=== PATIENT | female | born 1955 | race Caucasian/White ===

== ENCOUNTER → 2020-11-28 | Day surgery (SDC) | payer MEDICARE, OTHER ==
[~2020-11-28] VITALS: Ht 165.1 cm; Wt 82.7 kg
[~2020-11-28] MED LIST: ALEVE220 MG PO; ALLEGRA ALLERG180 MG PO; ASPIRIN EC81 MG PO; BENADRYL25 MG PO; HAIR VITAMIN1 EACH PO; NIFEREX150 MG PO; PERCOCET 5/3251 TAB PO; PROBIOTIC1 EAC1 PO; STOOL SOFTENER100 MG PO; XARELTO10 MG PO
== END | disposition home or self-care (01) ==
LOC: FAS 09:21
DX: M16.12 Unilateral primary osteoarthritis, left hip (principal); K58.9 Irritable bowel syndrome, unspecified; Z20.822 Contact with and (suspected) exposure to COVID-19; Z96.641 Presence of right artificial hip joint; Z90.710 Acquired absence of both cervix and uterus; Z88.0 Allergy status to penicillin; Z88.2 Allergy status to sulfonamides; Z98.890 Other specified postprocedural states; Z88.1 Allergy status to other antibiotic agents; Z91.013 Allergy to seafood
CPT/HCPCS: 76000; 77002; J1040; J2001; J2250; J2704; J7120; Q9967